=== PATIENT | male | born 1995 | race African-American/Black ===

== ENCOUNTER 2023-11-24 02:03 | Emergency (ER) | payer SELFPAY ==
[~2023-11-24] VITALS: Ht 177.8 cm; Wt 70.0 kg
[2023-11-24 02:06] VITALS: BP 110/70; PULSE 98; RESP 16; TEMP 98.5; O2SAT 98
== END 2023-11-24 04:46 | disposition home or self-care (01) ==
LOC: ER 02:11
DX: R05.9 Cough, unspecified (principal); Z59.00 Homelessness unspecified
CPT/HCPCS: 99283